=== PATIENT | male | born 1970 | race African-American/Black ===

== ENCOUNTER 2017-07-13 02:54 | Emergency (ER) | payer BC ==
[~2017-07-13] VITALS: Ht 177.8 cm; Wt 93.9 kg
--- NOTE | 2017-07-13 03:09 | NUR ---
Pt BIB SELF C/O HAVING BODY SHAKES, AND HAS BEEN FEELING ANXIOUS FOR THE PAST COUPLE OF WEEKS. Pt IS RESTING IN BED COMFORTABLY. NO S/S OF ACUTE DISTRESS OR SOB NOTED. RESPIRATIONS EVEN AND UNLABORED. Pt WAITING IN ER BED 2. VS STABLE AT THIS TIME.
[2017-07-13] MEDS ORDERED: LORAZEPAM 1 MG TABLET ONE (03:46)
[2017-07-13 03:48] LABS: BASOPHILS % (AUTO) 0.3 % (0.0-2.0); EOSINOPHILS # (AUTO) 0.1 /CMM (0.0-0.7); HEMATOCRIT 46 % (39-51); LYMPHOCYTES # (AUTO) 2.7 /CMM (0.8-4.8); LYMPHOCYTES % (AUTO) 27.4 % (20.0-44.0); MEAN CORPUSCULAR HEMOGLOBIN 29 PG (26.0-33.0); MEAN CORPUSCULAR HGB CONC 33 g/dl (31.0-36.0); MEAN CORPUSCULAR VOLUME 88 fL (80-96); MONOCYTES # (AUTO) 0.9 /CMM (0.1-1.30); MONOCYTES % (AUTO) 8.8 % (2.0-12.0); NEUTROPHILS # (AUTO) 6.2 /CMM (1.8-8.9); NEUTROPHILS % (AUTO) 62.5 % (43.0-81.0); PLATELET COUNT (AUTO) 252 /CMM (150-450); RDW COEFFICIENT OF VARIATION 13.2 (11.5-15.0); RED BLOOD CELL COUNT(AUTO) 5.18 MIL/uL (4.5-6.0); WHITE BLOOD COUNT (AUTO) 9.9 K/uL (4.3-11.0)
[2017-07-13] MEDS ORDERED: LORAZEPAM 0.5 MG TABLET PO ONE (04:00)
--- NOTE | 2017-07-13 04:00 | NUR ---
Pt RESTING COMFORTABLY IN BED. RESPIRATIONS EVEN AND UNLABORED.
[2017-07-13 04:03] LABS: CALCIUM, SERUM 9.7 mg/dL (8.5-10.1); POTASSIUM 3.4 mmol/L (3.5-5.1)
--- NOTE | 2017-07-13 04:12 | NUR ---
MD SPEAKING WITH Pt
--- NOTE | 2017-07-13 05:02 | NUR ---
Patient discharged to home in stable condition. Written and verbal after care instructions given. Patient verbalizes understanding of instruction. ambulatory with a steady gait noted. pt [id number] no acute distress noted, resp even and unlabored. advice pt not to drive or operate any machinery due to pt was given ativan. pt verbalize understanding.
[2017-07-13 05:04] VITALS: BP 137/76
== END 2017-07-13 05:06 | disposition home or self-care (01) ==
LOC: ER 03:01
DX: F41.9 Anxiety disorder, unspecified (principal)
CPT/HCPCS: 36415; 80048; 85025; 93005; 99285; A4606; Z7610